=== PATIENT | female | born 1975 | race Hispanic/Latino ===

== ENCOUNTER 2018-05-30 06:30 | Day surgery (SDC) | payer OTHER ==
[2018-05-25 14:46] VITALS: BP 114/49
[~2018-05-30] VITALS: Ht 157.5 cm; Wt 54.3 kg
[2018-05-30] VITALS (13 sets, daily range): BP systolic 93–126; BP diastolic 55–71
[~2018-05-30 06:30] MED LIST: AZEL23SP NS; CHOL500050 PO; DEXT37.55 PO
[2018-05-30] MEDS ORDERED: LACTATED RINGERS 1000ML 1,000 ML IV ONE (06:40)
[2018-05-30 06:48] LABS: BASOPHILS % (AUTO) 0.6 % (0.0-5.0); EOSINOPHILS % (AUTO) 1.4 % (0.0-8.0); LYMPHOCYTES % (AUTO) 28.1 % (21.0-51.0); MEAN CORPUSCULAR HEMOGLOBIN 30.8 pg (27.0-33.0); MEAN CORPUSCULAR HGB CONC 34.4 g/dL (32.0-36.0); MEAN CORPUSCULAR VOLUME 89.6 fL (79-99); NEUTROPHILS % (AUTO) 59.9 % (40.0-77.0); PLATELET COUNT (AUTO) 253 K/uL (130-400); RED BLOOD CELL COUNT(AUTO) 4.47 MIL/uL (4.00-5.50); RED CELL DISTRIBUTION WIDTH 13.3 % (11.0-15.5); WHITE BLOOD COUNT (AUTO) 7.1 K/uL (4.8-10.8)
[2018-05-30 07:10] LABS: INR 0.92 (0.85-1.15); PARTIAL THROMBOPLASTIN TIME 31.6 SEC (26.3-35.5); PROTHROMBIN TIME 9.7 SEC (9.6-11.6)
[2018-05-30] MEDS ORDERED: OXYMETAZOLINE HCL SPRAY 15 ML BOTTLE ONE (07:16)
[2018-05-30] MEDS ORDERED: BACITRACIN 28.4 GM OINT TP ONE (07:16)
[2018-05-30] MEDS ORDERED: LIDOCAINE 1%-EPI 1:100,000 20 ML VIAL IJ ONE (07:17)
[2018-05-30] MEDS ORDERED: EPINEPHRINE 1 MG/ML 30ML VIAL IJ ONE (07:17)
[2018-05-30] MEDS ORDERED: DEXAMETHASONE SOD PHOSPHATE 10MG/ML 1ML VIAL ONE ×2 (07:21→07:36)
[2018-05-30] MEDS ORDERED: PROPOFOL 10 MG/ML 20ML VIAL IV ONE (07:21)
[2018-05-30] MEDS ORDERED: MIDAZOLAM HCL 1 MG/ML 2ML VIAL ONE (07:21)
[2018-05-30] MEDS ORDERED: LIDOCAINE PF 2% 5ML ABBOJECT ONE ×2 (07:21→07:23)
[2018-05-30] MEDS ORDERED: SUCCINYLCHOLINE 200MG/10ML SYR ONE (07:21)
[2018-05-30] MEDS ORDERED: ONDANSETRON HCL 4 MG/2 ML VIAL ONE (07:21)
[2018-05-30] MEDS ORDERED: ROCURONIUM 10MG/1ML SYR 10 MG/ML ML ONE (07:22)
[2018-05-30] MEDS ORDERED: NEOSTIGMINE 5MG/5ML SYR IV ONE (07:22)
[2018-05-30] MEDS ORDERED: FENTANYL CITRATE PF 50 MCG/1 ML 2ML VIAL ONE ×2 (07:22→08:02)
[2018-05-30] MEDS ORDERED: GLYCOPYRROLATE 1 MG/5 ML SYRINGE ONE (07:23)
[2018-05-30] MEDS ORDERED: EPHEDRINE SULFATE 50 MG/ML AMPULE ONE (07:36)
[2018-05-30] MEDS ORDERED: KETOROLAC TROMETHAMINE 30MG/ML ONE (09:10)
== END 2018-05-30 10:22 | disposition home or self-care (01) ==
LOC: DAH 06:30
PROVIDERS: ATTEND Otolaryngology Plastic Surgery within the Head & Neck
DX: J34.2 Deviated nasal septum (principal); J32.2 Chronic ethmoidal sinusitis; J32.9 Chronic sinusitis, unspecified; J34.3 Hypertrophy of nasal turbinates; J34.89 Other specified disorders of nose and nasal sinuses; J30.9 Allergic rhinitis, unspecified; Z98.51 Tubal ligation status; Z98.890 Other specified postprocedural states; Z79.899 Other long term (current) drug therapy
CPT/HCPCS: 30140; 30520; 31254; 31256; 36415; 85025; 85610; 85730; 88304; A4649; J0171; J0330; J1100 ×2; J1885; J2001 ×2; J2250; J2405; J2704; J2710; J3010 ×2; J3490 ×3; J7120

== ENCOUNTER 2019-07-09 05:33 | Day surgery (SDC) | payer OTHER ==
[~2019-07-09] VITALS: Ht 154.9 cm; Wt 54.4 kg
[~2019-07-09 05:33] MED LIST changes: +CETI10CA5 PO; -CHOL500050 PO; +IBUP-2076 PO; +MULT-1192 PO
[2019-07-09] MEDS ORDERED: SODIUM CHLORIDE 0.9% 1000ML 1,000 ML IV ONE (05:49)
[2019-07-09 06:46] VITALS: BP 107/60
[2019-07-09] MEDS ORDERED: PROPOFOL 10 MG/ML 20ML VIAL IV ONE (08:05)
[2019-07-09 08:20] VITALS: BP 89/34
[2019-07-09 08:26] VITALS: BP 96/43
[2019-07-09 08:32] VITALS: BP 104/51
== END 2019-07-09 08:49 | disposition home or self-care (01) ==
LOC: DAH 05:33 → ENDO 05:33
PROVIDERS: ATTEND Internal Medicine
DX: K59.01 Slow transit constipation (principal); K31.89 Other diseases of stomach and duodenum; K21.9 Gastro-esophageal reflux disease without esophagitis; K64.0 First degree hemorrhoids; J45.909 Unspecified asthma, uncomplicated; M10.9 Gout, unspecified; Z79.899 Other long term (current) drug therapy; Z72.89 Other problems related to lifestyle; Z98.51 Tubal ligation status; Z98.890 Other specified postprocedural states; Z85.828 Personal history of other malignant neoplasm of skin
CPT/HCPCS: 43239; 45378; A4215; A4221; A4222; A4223; A4606; A4620; A4663; J2704; J7030

== ENCOUNTER 2024-02-09 05:59 | Day surgery (SDC) | payer OTHER ==
[~2024-02-09] VITALS: Ht 154.9 cm; Wt 63.5 kg
[2024-02-09] VITALS (11 sets, daily range): BP systolic 94–104; BP diastolic 41–64; PULSE 56–76; RESP 16
[~2024-02-09 05:59] MED LIST changes: -AZEL23SP NS; -CETI10CA5 PO; +CHOL125C6 PO; +DEXT10TA4 PO; -DEXT37.55 PO; -IBUP-2076 PO; -MULT-1192 PO; +VITAMIN B12
[2024-02-09] MEDS: 0.9%NACL 1000ML 1,000 ML IV ONE (06:44)
[2024-02-09] MEDS ORDERED: PROPOFOL 10 MG/ML 20ML VIAL IV ONE ×3 (07:41→07:56)
== END 2024-02-09 09:10 | disposition home or self-care (01) ==
LOC: ENDO 05:59 → DAH 05:59 → ENDO 09:10
PROVIDERS: ATTEND Internal Medicine
DX: Z12.11 Encounter for screening for malignant neoplasm of colon (principal); K64.0 First degree hemorrhoids; K22.719 Barrett's esophagus with dysplasia, unspecified; K29.00 Acute gastritis without bleeding; K31.89 Other diseases of stomach and duodenum; K76.9 Liver disease, unspecified; J45.909 Unspecified asthma, uncomplicated; M19.90 Unspecified osteoarthritis, unspecified site; Z98.51 Tubal ligation status; M06.9 Rheumatoid arthritis, unspecified; Z85.828 Personal history of other malignant neoplasm of skin; Z79.899 Other long term (current) drug therapy
CPT/HCPCS: 45378; 43239; J7030; J2704 ×3; A4620; A4215 ×2; A4223; A4222; A4221; A4663; A4606; J3490